=== PATIENT | male | born 1990 | race Caucasian/White ===

== ENCOUNTER 2018-11-11 07:03 | Outpatient (CLI) | payer OTHER ==
--- NOTE | 2018-11-11 09:14 | ULT ---
ULTRASOUND ABDOMEN: HISTORY: Elevated liver enzymes, abnormal LFTs. Alcohol abuse. FINDINGS: The exam is limited due to patient's body habitus. The liver demonstrates increased echogenicity consistent with fatty infiltration. No hepatic mass or abnormal biliary ductal dilatation is seen. The spleen, kidneys, gallbladder and visualized portions of the pancreas, aorta and IVC are unremarka ble. No free fluid is seen. The common duct measures 5 mm in diameter. IMPRESSION: 1. Fatty liver 2. No evidence cholelithiasis.
== END 2018-11-11 07:04 | disposition home or self-care (01) ==
LOC: SCSULT 07:03
PROVIDERS: ATTEND Family Medicine
DX: R79.89 Other specified abnormal findings of blood chemistry (principal); K76.0 Fatty (change of) liver, not elsewhere classified
CPT/HCPCS: 36415; 76700; 80074

== ENCOUNTER 2019-05-12 07:06 | Day surgery (SDC) | payer OTHER ==
[2019-05-11 13:58] VITALS: BMI 31.6
--- NOTE | 2019-05-12 03:46 | HP ---
HISTORY OF PRESENT ILLNESS: This is a 29-year-old male with chronic acid reflux, heartburn, indigestion, nausea, and vomiting. The patient has had symptoms for a while. He complains of severe heartburn, indigestion and also regurgitation. There is no history of hematemesis. He has had no cough. No vomiting. He has been taking pantoprazole and Zofran, but he still has some of those symptoms off and on. The patient underwent EGD because of the severe reflux symptoms. ALLERGIES: NONE. SOCIAL HISTORY: The patient is a former smoker. He denies any alcohol abuse, but drinks alcohol 3 drinks every day. No alcohol or drug use. MEDICAL ILLNESSES: 1. Chronic acid reflux, abnormal LFTs. 2. Fatty liver. 3. Anxiety. PHYSICAL EXAMINATION: VITAL SIGNS: Weight is 204 pounds, pulse is 74 and blood pressure 120/70. HEENT: Conjunctiva clear. CARDIOVASCULAR: First and second heart sounds normal. LUNGS: Clear to auscultation. ABDOMEN: Soft. Nontender. No organomegaly. No masses. ADMITTING DIAGNOSES: Severe reflux symptoms, nausea, vomiting, and heart burn. The patient underwent EGD because of his severe reflux symptoms. Job ID: [id number]
[2019-05-12] MEDS ORDERED: Fentanyl 100 MCG/2 ML VIAL ONE (09:03)
[2019-05-12] MEDS ORDERED: PROPOFOL 200 MG/20 ML VIAL ONE (11:46)
--- NOTE | 2019-05-12 15:45 | OP ---
DATE OF PROCEDURE: 05/12/2019 PROCEDURE PERFORMED: Esophagogastroduodenoscopy. PREOPERATIVE DIAGNOSIS: A 29-year-old male with a chronic and severe acid reflux. He is on pantoprazole. He just has nausea off and on. The patient underwent esophagogastroduodenoscopy because of persistent acid reflux. POSTOPERATIVE DIAGNOSES: 1. Normal vocal cords. 2. Normal esophageal mucosa without any evidence of esophagitis or any ulceration. 3. Normal gastroesophageal junction. 4. Retained food material in stomach after overnight fasting without any evidence of pyloric obstruction. 5. Normal duodenum. DESCRIPTION OF PROCEDURE: The patient was placed on his left lateral position and was given sedation by Anesthesia Department. A [employer] video gastroscope under direct vision passed down the oropharynx, past the GE junction into the stomach and subsequently into the descending duodenum. The esophageal mucosa appeared completely normal. There was no esophagitis seen. In the GE junction, no pathology seen. Retroflexion failed to show any pathology in fundus or cardia. The patient had some food material over the proximal stomach after overnight fasting. The pylorus was wide open and no pyloric obstruction. In the incisura angularis, no lesion seen. In the duodenal bulb and descending duodenum, no pathology seen. The stomach decompressed and the scope removed. OVERALL IMPRESSION: Essentially normal esophagogastroduodenoscopy. He has history of chronic acid reflux. The patient did have some mucus food material, but there is no evidence of pyloric obstruction. DISCHARGE RECOMMENDATIONS: 1. Resume medications as before. 2. He is advised to call me if he develops abdominal pain, hematochezia, or fever. 3. To come back to clinic in 2 weeks. Job ID: [id number]
== END 2019-05-12 10:00 | disposition home or self-care (01) ==
LOC: SDC 07:06
PROVIDERS: ATTEND Internal Medicine Gastroenterology
PROC: 0DJ08ZZ Inspection of Upper Intestinal Tract, Via Natural or Artificial Opening Endoscopic (ICD-10-PCS; principal; 2019-05-12)
DX: K21.9 Gastro-esophageal reflux disease without esophagitis (principal); K76.0 Fatty (change of) liver, not elsewhere classified; F41.9 Anxiety disorder, unspecified; Z87.891 Personal history of nicotine dependence; Z79.899 Other long term (current) drug therapy
CPT/HCPCS: J2704; J3010